=== PATIENT | female | born 1950 | race Caucasian/White ===

== ENCOUNTER 2021-09-27 08:00 | Outpatient (RCR) | payer MEDICARE, SELFPAY | END 2021-11-18 14:25 | disposition home or self-care (01) | LOC: HO.PT 08:00 | PROVIDERS: Visit Provider Physician Assistant | DX: M54.31 Sciatica, right side (principal) | CPT/HCPCS: 97110; 97112; 97162; 97530 ==

== ENCOUNTER → 2024-11-03 13:00 | Outpatient (BNV) | payer MEDICARE, SELFPAY | PROVIDERS: PCP Internal Medicine; Visit Provider Internal Medicine | DX: Z12.31 Encounter for screening mammogram for malignant neoplasm of breast (principal) | CPT/HCPCS: 77063; 77067 ==

== ENCOUNTER 2024-11-03 13:07 | Outpatient (REF) | payer MEDICARE, SELFPAY ==
--- OUTSIDE RECORDS SUMMARY | 2024-11-03 13:53 | XMS_ITS | Clinical Summary ---
Author Organization [facility] Address [address] [facility] [address] [place] [phone] Phone Care Team Providers Care Oil Burner Mechanic Name Role Phone Marielena Shin MD Primary Care Prov ider Allergies No known active allergies Medications atorvastatin (LIPITOR) 20 MG tablet 02/18/2023 Active finasteride (PROSCAR) 5 mg tablet 03/16/2023 Active ketoconazole 2 % cream 03/29/2023 Active levocetirizine (XYZAL) 5 MG tablet 02/21/2023 Active LORazepam (ATIVAN) 0.5 MG tablet 02/21/2023 Activ e omeprazole (PRILOSEC) 10 MG capsule 02/21/2023 Active Active Problems No known active problems Social History Tobacco Use Types Packs/Day Years Used Date Smoking Tobacco: Former Cigarettes Smokeless Tobacco: Never Tobacco Cessation:Counseling Given: Not Answered Education Answer Date Recorded Are you interested in more education? Not on yolanda e 04/18/2023 Are you concerned about learning? Not on file 04/18/2023 No 04/18/2023 No 04/18/2023 Digital Access Answer Date Recorded No 04/18/2023 No 04/18/2023 Reliable internet access at home? Not on file 04/18/2023 Device with a working camera? Not on file Comments Unknown Sex and Gender Information Value Date Recorded Sex Assigned at Not on file Legal Sex Female 12:30 PM EST Gender Identity Not on file Sexual Orientation Not on file Last Filed Vital Signs Vital Sign Reading Time Taken Comments Blood Pressure 156/86 04/18/2023 1:23 PM EST Pulse 64 04/18/2023 12:51 PM EST Temperature 37.1 C (98.8 F) 04/18/2023 12:51 PM EST Respiratory Rate 18 04/18/2023 12:51 PM EST Oxygen Saturation 98% 04/18/2023 12:51 PM EST Inhaled Oxygen Concentration - - Weight 72.6 kg (160 lb) 04/18/2023 12:51 PM EST per pt Height - - Body Mass Index - - Plan of Treatment Health Maintenance Due Date Last Done Comments LIPID PANEL 1949 DEPRESSION SCREENING 1961 SMOKING Hx and SMOKELESS TOBACCO SCREENING 1962 HEPATITIS C SCREENING 1967 COLOGUARD 1994 COLONOSCOPY 1994 COLORECTAL CANCER SCREENING 1994 FIT TEST 1994 FOBT 1994 SIGMOIDOSCOPY 1994 VIRTUAL COLONOSCOPY 1994 OSTEOPOROSIS SCREENING INITIAL (ONE-TIME) 2014 PNEUMOCOCCAL VACCINES (50+ years) (2 of 2 - PPSV23) 03/23/2019 03/23/2018 COVID-19 VACCINE ( season) 2023 01/21/2023, 01/21/2023, 02/13/2022, Additional history exists Adult Td,Tdap Booster 02/21/2033 02/21/2023 RSV VACCINE Completed 01/21/2023 ZOSTER VACCINES Completed 03/20/2023, 01/07/2023 HEPATITIS A VACCINES Aged Out No long er eligible based on patient's age to complete this topic HIB VACCINES Aged Out No longer eligi ble based on patient's age to complete this topic MENINGOCOCCAL VACCINES (ACWY) Aged Out No longer eligible based on patient's age to complete this topic MENINGOCOCCAL VACCINES (B) Aged Out N o longer eligible based on patient's age to complete this topic Medical Devices Not on file Insurance [employer] PPO MEDICARE REPLACEMENT AETNA O MEDICARE REPLACEMENT AETNA O MEDICARE REPLACEMENT AETNA O MEDICARE REPLACEMENT AETNA PPO MEDICARE REPLACEMENT AET[employer] PPO MEDICARE REPLACEMENT Care Teams Oil Burner Mechanic Relationship Specialty Start Date End Date Marielena Shin MD [address] [place] [phone] PCP - General Internal Medicine 04/18/23 Additional Source Comments The information contained in this document represents components of the legal health record. It is not the complete legal health record.[facility]
--- OUTSIDE RECORDS SUMMARY | 2024-11-03 13:53 | XMS_ITS | Clinical Summary ---
Author Organization [facility] [address] [place] [address] [place] [phone] Phone Care Team Providers Care Sawmilling Operator Name Role Phone Marielena Shin MD Primary Care Prov ider Allergies No known active allergies Medications aspirin 81 mg EC tablet Take 81 mg by mouth daily. Active calcium carbonate (TUMS E-X ORAL) Take by mouth. Active ketoconazole (NIZORAL) 2 % cream APPLY TWO TIMES A DAY TO SKIN FOLDS AND UNDER BREASTS NEEDED FOR RASH 10/02/2023 Active LORazepam (ATIVAN) 0.5 mg tablet Take 1 Tablet by mouth daily as needed (For anxiety before traveling.). 02/21/2023 Active levocetirizine (XYZAL) 5 mg tablet TAKE 1 TABLET EVERY EVENING 90 tablet 1 03/17/2024 Active mirabegron (Myrbetriq) 25 mg 24 hr tablet Take 1 tablet (25 mg total) by mouth 1 (one) time each day. 90 each 1 08/21/2024 Active hydrOXYzine HCL (ATARAX) 10 mg tabletIndicatio ns:Anxiety Take 1 tablet (10 mg total) by mouth every 8 (eight) hours if needed for anxiety. 30 tablet 08/21/2024 Active atorvastatin (LIPITOR) 20 mg tablet TAKE 1 TABLET DAILY 90 tablet 1 09/09/2024 Active lisinopriL (PRINIVIL,ZESTR IL) 10 mg tablet TAKE 1 TABLET DAILY 90 tablet 1 09/09/2024 Active omeprazole (PriLOSEC) [address] capsule TAKE 1 CAPSULE DAILY 90 capsule 1 09/09/2024 Active finasteride (PROSCAR) 5 mg tablet TAKE 1 TABLET DAILY 90 tablet 1 09/09/2024 Active Active Problems Problem Noted Date Diagnosed Date Gastroesophageal reflux disease without esophagi tis 03/01/2021 Assessment & Plan (08/21/2024 9:56 AM EDT): Assessment & Plan (02/22/2024 9:54 AM EST): well controlled on omeprazole once a day. We will continue this medication. COVID-19 03/16/2020 Overview (01/16/2024): Mild case Essential hypertension 12/27/2018 Assessment & Plan (08/21/2024 9:56 AM EDT): Assessment & Plan (02/22/2024 10:03 AM EST): Currently well controlled. Today 130/60, patient currently on lisinopril 10 mg and, aspirin every day. We will continue these medications. Patient is encouraged to follow a low-salt diet and exercise regularly. Will check a BMP and a lipid profile before her next visit. Orders: Basic metabolic panel; Future Lipid panel with reflex to direct LDL; Future Other hyperlipidemia 12/25/2018 Assessment & Plan (08/21/2024 9:56 AM EDT): Assessment & Plan (02/22/2024 9:54 AM EST): Patient currently on atorvastatin 20 mg a day. Last LDL 107, diet and exercise discussed as above. Orders: Basic metabolic panel; Future Lipid panel with reflex to direct LDL; Future Encounters Date Type Department Care Team Description 08/21/2024 9:30 AM EDT Office Visit Adult [address] [phone] Marielena Fair MD Essential hypertension (Primary Dx); Other hyperlipidemia; Gastroesophageal reflux disease without esophagitis; Anxiety; Urinary urgency; Encounter for screening involving social determinants of health (SDoH); Screening for depression from Last 3 Months Immunizations Name Administration Dates Next Due Influenza trivalent, 0.5mL ( Fluzone High-dose) 65yo and older 12/31/2019,12/27/2018,01/26/2018,2016,01/18/2016,01/17/2015 Influenza trivalent, with preservative (Fluzone; Afluria) 6mo and older 01/02/2024 Influenza, Unspecified 01/07/2023 [employer] SARS-CoV-2 COVID -19, vector-nr, rS-Ad26, preservative free 02/15/2021 Moderna SARS-CoV-2 COVID-19, mRNA, LNP-S, preservative free 01/21/2023,02/13/2022 Pneumococcal conjugate 13 va lent (Prevnar 13, PCV13) 2mo and older 03/23/2018 Tdap Tetanus diptheria acell ular pertussis (Boostrix; Adacel) 7yo and older 02/21/2023 Zoster recombinant (Shingrix ) 19yo and older 01/07/2023 Surgical History Surgery Date Site/Laterality Comments OTHER SURGICAL HISTORY PROCEDURE: HISTORY OTHER; COMMENT: Lipoma removal left shoulder Family History Medical History Relation Name Comments Melanoma Brother Heart attack Father First [place] age 40 , at age 80 Coronary artery disease Father's side Alzheimer's disease Mother age 100 Breast cancer Neg Hx Relation Name Status Comments Brother Father Father's side Mother Social History Tobacco Use Types Packs/Day Years Used Date Smoking Tobacco: Never Smokeless Tobacco: Never Tobacco Cessation:Counseling Given: Not Answered Alcohol Use Standard Drinks/Week Comments Not Currently 0 (1 standard drink = 0.6 oz pur e alcohol) Housing Instability Answer Date Recorde d Are you worried that in the next 2 months you may not have stable housing? No 08/21/2024 Food Access & Nutrition Answer Date Rec orded Do you have access to a vari ety of food including fruits and vegetables? Yes 08/21/2024 Health Literacy Answer Date Recorded How often do you need to hav e someone help you when you read instructions, pamphlets, or other written material from your doctor or pharmacy? Never 08/21/2024 Caregiver: How often do you need to have someone help you when you read instructions, pamphlets, or other written material from your doctor or pharmacy? Not on file 08/21/2024 Financial Risk Answer Date Recorded How hard is it for you to pa y for the very basics like food, housing, medical care, and air conditioning / heating? Not very hard 08/21/2024 Transportation Answer Date Recorded Has the lack of transportati on kept you from meetings, work, or from getting things needed for daily living? Not on file 08/21/2024 Has the lack of transportati on kept you from medical appointments or from getting medications? No 08/21/2024 Social Isolation Answer Date Recorded How often do you feel lonely or isolated from th ose around you? Never 08/21/2024 Food Risk Answer Date Recorded Within the past 12 months we worried whether our food would run out before we got money to buy more. Never true 08/21/2024 Within the past 12 months th e food we bought just didn't last and we didn't have money to get more. Never true 08/21/2024 Dependent Care Answer Date Recorded Do you need help finding or paying for care for your loved ones. For example, child nutrition director or elderly care for an older adult? No 08/21/2024 Education Answer Date Recorded Do you think completing more education or training, like finishing a GED, going to college, or learning a trade, would be helpful for you? N/A 08/21/2024 Employment and Income Answer Date Recor ded During the last four weeks, have you been actively looking for work? No 08/21/2024 Living Situation Answer Date Recorded What is your living situation? 0 08/21/2024 Comments No Sex and Gender Information Value Date Recorded Sex Assigned at Not on file Legal Sex Female 5:16 AM EST Gender Identity Not on file Sexual Orientation Not on file Obstetrics History Last Filed Vital Signs Vital Sign Reading Time Taken Comments Blood Pressure 130/59 08/21/2024 9:39 AM EDT Pulse 65 08/21/2024 9:38 AM EDT Temperature 36.1 C (97 F) 08/21/2024 9:38 AM EDT Respiratory Rate 13 08/21/2024 9:38 AM EDT Oxygen Saturation 98% 02/22/2024 9:34 AM EST Inhaled Oxygen Concentration - - Weight 72.5 kg (159 lb 12.8 oz) 08/21/2024 9:38 AM EDT Height 154.9 cm (5' 1 ) 08/21/2024 9:38 AM EDT Body Mass Index 30.19 08/21/2024 9:38 AM EDT Plan of Treatment Upcoming Encounters Date Type Department Care Team (Late st Contact Info) Description 02/23/2025 11:30 AM EST Office Visit Adult Medicine [address] [phone] Marielena Shin MD [address] [place] [phone] Health Maintenance Due Date Last Done Comments Pneumococcal Vaccine: 50+ Years (2 of 2 - PPSV23) 03/23/2019 03/23/2018 COVID-19 Vaccine ( season) 2023 01/21/2023, 02/13/2022, 02/15/2021, Additional history exists Medicare Annual Wellness Visit 08/21/2024 08/22/2023 Influenza Vaccine (#1) 2024 , 01/07/2023, 02/01/2022, Additional history exists Hypertension/CHF/CAD Annual BMP Blood Test 08/18/2025 08/18/2024, 08/17/2023, 08/17/2023 Falls Risk Assessment 08/21/2025 08/21/2024, 024 Social Influencers of Health Screening 08/21/2025 08/21/2024 Osteoporosis Screening (Bone Density Screening) 09/07/2026 09/07/2021 Cholesterol Screening (Lipid Panel) 08/18/2029 08/18/2024, 08/17/2023, 08/17/2023 Colorectal Cancer Screening: Colonoscopy 08/30/2031 08/29/2021 DTaP,Tdap,and Td Vaccines (2 - Td or Tdap) 02/21/2033 02/21/2023 RSV Immunization Adult Patients Completed 01/21/2023 Zoster Vaccines Completed 03/20/2023, 01/07/2023 Breast Cancer Screening Discontinued 04/26/19, 04/25/2022, 04/22/2021, Additional history exists Hepatitis C Screening Completed 08/17/2023 Depression Screening Completed 08/21/2024 HIB Vaccines Aged Out No longer eligi ble based on patient's age to complete this topic HPV Vaccines Aged Out No longer eligi ble based on patient's age to complete this topic Hepatitis A Vaccines Aged Out No long er eligible based on patient's age to complete this topic Hepatitis B Vaccines Aged Out No long er eligible based on patient's age to complete this topic IPV Vaccines Aged Out No longer eligi ble based on patient's age to complete this topic MMR Vaccines Aged Out No longer eligi ble based on patient's age to complete this topic Meningococcal ACWY Vaccine Aged Out N o longer eligible based on patient's age to complete this topic Meningococcal B Vaccine Aged Out No l onger eligible based on patient's age to complete this topic RSV Immunization Patients Under 20 months Aged Out No longer eligible based on patient's age to complete this topic Varicella Vaccines Aged Out No longer eligible based on patient's age to complete this topic Procedures Procedure Name Priority Date/Time Associated Diagnosis Comments BASIC METABOLIC PANEL Routine 08/18/2024 8:44 AM EDT Essential hypertension Other hyperlipidemia LIPID PANEL WITH REFLEX TO DIRECT LDL Routine 08/18/2024 8:44 AM EDT Essential hypertension Other hyperlipidemia HEPATITIS C SCREENING Routine 08/17/2023 SCREENING MAMMOGRAPHY BI 2-VIEW BREAST INC CAD Routine 04/26/2023 2:22 PM EST Encounter for screening mammogram for malignant neoplasm of breast DXA BONE DENSITY STUDY 1+ SITS AXIAL SKEL Routine 09/07/2021 2:23 PM EDT Asymptomatic menopausal state COLONOSCOPY Routine 08/29/2021 from Last 3 Months or Most Recently Relevant to Health Maintenance Results * (ABNORMAL) Lipid panel with reflex to direct LDL (08/18/2024 8:44 AM EDT) Cholesterol 186 0 - 200 mg/dL LAB CHEMISTRY METHOD 08/18/2024 11:20 AM EDT [facility] Triglycerides 80 0 - 150 mg/dL LAB CHEMISTRY METHOD 08/18/2024 11:20 AM EDT [facility] HDL 62 >=40 mg/dL LAB CHEMISTRY METHOD 08/18/2024 11:20 AM EDT [facility] LDL Calculated 108(H) 0 - 100 mg/dL LAB CHEMISTRY METHOD 08/18/2024 11:20 AM EDT [facility] VLDL Cholesterol Ayo 16 mg/dL LAB CHEMISTRY METHOD 08/18/2024 11:20 AM [facility] Non HDL Chol. (LDL+VLDL) 124 <145 mg/dL LAB CHEMISTRY METHOD 08/18/2024 11:20 AM [facility] Chol/HDL Ratio 3.0 0.0 - 4.4 LAB CHEMISTRY METHOD 08/18/2024 11:20 AM [facility] Blood Venous blood specimen / Unknown Venipuncture / Unknown 08/18/2024 8:44 AM EDT 08/18/2024 8:44 AM EDT us Marielena Shin MD LAB BLOOD ORDERABL ES Final Result [facility] [address] [place] [address], * (ABNORMAL) Basic metabolic panel (08/18/2024 8:44 AM EDT) Sodium 143 133 - 145 mmol/L LAB CHEMISTRY METHOD 08/18/2024 11:20 AM T [facility] Potassium 4.0 3.5 - 5.5 mmol/L LAB CHEMISTRY METHOD 08/18/2024 11:20 AM EDT [facility] Chloride 109 96 - 110 mmol/L LAB CHEMISTRY METHOD 08/18/2024 11:20 AM [facility] CO2 26 21 - 32 mmol/L LAB CHEMISTRY METHOD 08/18/2024 11:20 AM [facility] Anion Gap 8 3 - 11 LAB CHEMISTRY METHOD 08/18/2024 11:20 AM [facility] Glucose 111(H) 70 - 100 mg/dL LAB CHEMISTRY METHOD 08/18/2024 11:20 AM [facility] BUN 15 5 - 25 mg/dL LAB CHEMISTRY METHOD 08/18/2024 11:20 AM [facility] Creatinine 0.78 0.50 - 1.10 mg/dL LAB CHEMISTRY METHOD 08/18/2024 11:20 AM [facility] eGFR 79 >=60 mL/min/1. 73m2 LAB CHEMISTRY METHOD 08/18/2024 11:20 AM [facility] Comment:Calculation based on the Chronic Kidney Disease Epidemiology Collaboration (CKD-EPI) equation refit without adjustment for race. BUN/Creatinine Ratio 19.2 LAB CHEMISTRY METHOD 08/18/2024 11:20 AM [facility] Calcium 9.5 8.5 - 10.5 mg/dL LAB CHEMISTRY METHOD 08/18/2024 11:20 AM [facility] Blood Venous blood specimen / Unknown Venipuncture / Unknown 08/18/2024 8:44 AM EDT 08/18/2024 8:44 AM EDT us Marielena Shin MD LAB BLOOD ORDERABL ES Final Result [facility] [address] [place] [address], * Hepatitis C Screening (08/17/2023) Pathologist [facility] Hepatitis C Screening Abstracted us Historical Provider HEALTH MAINTENANCE Final Result * SCREENING MAMMOGRAPHY BI 2-VIEW BREAST INC CAD (04/26/2023 2:22 PM EST) Anatomical Region Laterality Modality Radiographic Tanya ging 04/25/2022 3:44 PM EST Narrative 04/27/2023 7:17 AM EST This is a summary report. The complete report is available in the patient's medical record. If you cannot access the medical record, please contact the sending organization for a detailed fax or copy. Full field digital screening tomosynthesis mammography, reviewed with CAD and compared to previous. The breasts are composed of fatty and fibroglandular tissue. No suspicious mass, architectural distortion or suspicious calcifications are identified. Focal asymmetries in both breasts are stable. IMPRESSION: : No mammographic evidence of malignancy. BIRADS 2-benign 5 year breast cancer risk assessment N/A Lifetime breast cancer risk assessment N/A Breast cancer risk category Breast cancer risk not assessed Procedure Note Paula Cortes MD - 12/03/2023 This is a summary report. The complete report is available in thepatient's medical record. If you cannot access the medical record, pleasecontact the sending organization for a detailed fax or copy. Full field digital screening tomosynthesis mammography, reviewed with CADand compared to previous. The breasts are composed of fatty andfibroglandular tissue. No suspicious mass, architectural distortion orsuspicious calcifications are identified. Focal asymmetries in bothbreasts are stable. IMPRESSION: : No mammographic evidence of malignancy. BIRADS 2-benign 5 year breast cancer risk assessment N/A Lifetime breast cancer risk assessment N/A Breast cancer risk category Breast cancer risk not assessed Marielena Shin MD IMG XR PROCEDURES Final Result * DXA BONE DENSITY STUDY 1+ SITS AXIAL SKEL (09/07/2021 2:23 PM EDT) Anatomical Region Laterality Modality Bone Densitometr y 08/29/2021 11:3 3 AM EDT Narrative 09/07/2021 3:16 PM EDT BONE DENSITY Lumbar Spine T-score is +0.8 (SD relative to 20-29 y/o adult) Z-score is +3.1 (SD relative to age matched peers) This is normal by criteria defined by the WHO. Left Hip T-score is -1.4 Z-score is +0.6 This is consistent with osteopenia by criteria defined by the WHO. Impression: Based on the World Health Organization criteria, Trang Hall should be classified as having osteopenia. This patient has a 9.9% risk of major osteoporotic fracture and a 1.5% risk of hip fracture over the next 10 years. (World Health Organization Fracture Risk Assessment) [facility] Department of Internal Medicine recommends using National Osteoporosis Foundation (NOF) guidelines in treatment decisions related to osteoporosis. NOF guidelines suggest considering treatment for postmenopausal women and men aged 50 or older presenting with the following: History of hip or vertebral fracture. T-score less than or equal to -2.5 (DXA) at the femoral neck, total hip, or spine, after appropriate evaluation to exclude secondary causes. Low bone mass (T-score between -1.0 and -2.5 at the femoral neck or spine) AND a 10-year probability of a hip fracture greater than or equal to 3% OR a 10-year probability of a major osteoporosis-related fracture greater than or equal to 20% based on the [place]-adapted WHO algorithm Please note that all treatment decisions require clinical judgment and consideration of individual patient factors, including patient preferences, co-morbidities, previous drug use, risk factors not captured in the FRAX model (e.g., frailty, falls, vitamin D deficiency, increased bone turnover, interval significant decline in bone density) and possible under- or over-estimation of fracture risk by FRAX. Procedure Note Roger Swartz MD - 04/04/2022 BONE DENSITY Lumbar Spine T-score is +0.8 (SD relative to 20-29 y/o adult) Z-score is +3.1 (SD relative to age matched peers) This is normal by criteria defined by the WHO. Left Hip T-score is -1.4 Z-score is +0.6 This is consistent with osteopenia by criteria defined by the WHO. Impression: Based on the World Health Organization criteria, Trang Hall should beclassified as having osteopenia. This patient has a 9.9% risk of majorosteoporotic fracture and a 1.5% risk of hip fracture over the next 10years. (World Health Organization Fracture Risk Assessment) [facility] Department of Internal Medicine recommendsusing National Osteoporosis Foundation (NOF) guidelines in treatmentdecisions related to osteoporosis. NOF guidelines suggest consideringtreatment for postmenopausal women and men aged 50 or older presentingwith the following: History of hip or vertebral fracture. T-score less than or equal to -2.5 (DXA) at the femoral neck, total hip,or spine, after appropriate evaluation to exclude secondary causes. Low bone mass (T-score between -1.0 and -2.5 at the femoral neck or spine)AND a 10-year probability of a hip fracture greater than or equal to 3% ORa 10-year probability of a major osteoporosis-related fracture greaterthan or equal to 20% based on the [place]-adapted WHO algorithm Please note that all treatment decisions require clinical judgment andconsideration of individual patient factors, including patientpreferences, co-morbidities, previous drug use, risk factors not capturedin the FRAX model (e.g., frailty, falls, vitamin D deficiency, increasedbone turnover, interval significant decline in bone density) and possibleunder- or over-estimation of fracture risk by FRAX. [facility] [place] Final Result * Colonoscopy (08/29/2021) [facility] Colonoscopy Postponed, Abstracted Anatomical Region Laterality Modality Other Historical Provider HEALTH MAINTENANCE Final Result from Last 3 Months or Most Recently Relevant to Health Maintenance Insurance [employer] MEDICARE ADVANTAGE Care Teams Sawmilling Operator Relationship Specialty Start Date End Date Marielena Shin MD [address] [place] [id number] PCP - General Internal Medicine 02/21/24
--- OUTSIDE RECORDS SUMMARY | 2024-11-03 13:53 | XMS_ITS | Patient Health Record ---
Author Organization [facility] Address [address] [place] [address] Care Team Providers Care Glassware Finisher Name Role Phone Lacie Delcid MD Primary Care Provider Natanael Hidalgo Unavailable [phone] Leyla SOFTWARE DESIGNER, Marielena Unavailable Unavail able Reason For Referral No Information Medications Medication SIG (Take, Route, Fr equency, Duration) Notes Start Date End Date Status Aspir-81 81mg Active Omeprazole 20mg Acti ve MoviPrep 100 GM as directed Orally a s directed for 1 dose 07/18/2013 Active Lipitor 20mg Active Lisinopril 10mg Acti ve Xyzal 10mg Active Premarin 0.3% Active Problems Problem Type SNOMED Code ICD Code Onset Dates Problem Status W/U Status Risk Notes Problem Already on aspirin (825265520) Long-term (current) use of aspirin (V58.66) Active confirmed Problem Screening for colon cancer (320420604) Screening for colon cancer (V76.51) Active confirmed Problem Gastroesophageal reflux disease (433316241) GERD (gastroesopha geal reflux disease) (530.81) Active confirmed Plan Of Treatment Future Test Test Name Order Date COLONOSCOPY 07/18/2013 Insurance Providers Payer Name Payer Address Payer Phone Subscriber Number Group Number Insured Name Patient Relationship to Insured Coverage Start Date Coverage End Date [employer] [place] [address] [place] [phone] [id number] DINA CONTRERAS Self - patient is the insured [id number] [address] [place] [address] [id number] DINA CONTRERAS Self - patient is the insured Medical (General) History Medical History History ICD Code EGD 11-01-2005--small HH, s/p balloon dilation--bx neg for Srinivasan's and H.pylori Colonoscopy in 05/2003-neg ex cept mild diverticulosis and internal hemorrhoids Denies MD,DM,CVA,Lung disease,renal dise ase HTN Hyperlipidemia Diverticulitis Surgical History Surgery Date(Month/Year) Hystrectomy and removal of 1 ovary Rotator cuff tear repair C-sections Eye surgery
== END 2024-11-03 13:08 | disposition home or self-care (01) ==
LOC: HO.MAMMO 13:07
PROVIDERS: PCP Internal Medicine; Visit Provider Internal Medicine
DX: Z12.31 Encounter for screening mammogram for malignant neoplasm of breast (principal)
CPT/HCPCS: 77063; 77067